=== PATIENT | female | born 1970 | race Caucasian/White ===

== ENCOUNTER 2018-01-16 08:59 | Day surgery (SDC) | payer OTHER ==
[2018-01-16] MEDS ORDERED: FENTAnyl 50 MCG/ML VIAL (11:11)
[2018-01-16] MEDS ORDERED: MIDAZOLAM 1 MG/ML 2 ML INJ ×3 (11:11)
== END 2018-01-16 12:17 | disposition home or self-care (01) ==
LOC: GIL 08:59
DX: K29.70 Gastritis, unspecified, without bleeding (principal); K21.9 Gastro-esophageal reflux disease without esophagitis; K64.9 Unspecified hemorrhoids
CPT/HCPCS: 43239; 88305; 88312